=== PATIENT | female | born 1990 | race Caucasian/White ===

== ENCOUNTER 2019-07-17 22:07 | Emergency (ER) | payer SELFPAY ==
[2019-07-17 22:08] VITALS: BP 125/70; PULSE 77; RESP 16; TEMP 36.6; O2SAT 100; BMI 27.4
--- NOTE | 2019-07-17 22:55 | ED.DCSUM_ITS ---
- ER Visit Summary Date of Service: 07/17/19 Chief Complaint: [Dental pain] History of Present Illness: The patient is a 28 F [presents to the emergency department complaint of dental pain. Patient has had dental infections over the course of the last month. Patient's been on 2 rounds of clindamycin and dajuan hutchinson is on Zithromax. Patient saw dentist 5 days ago started the Zithromax. Patient states that she started feeling better but today started having more discomfort and pressure in her left upper face. She is concerned that the infection might spread to her bloodstream. Patient has not had any fevers or chills or sweats. Patient has a scheduled extraction to be performed in 5 days.] Physical Examination: [HEENT-PERRLA, EOMI. Cranial nerves II through XII grossly intact. TMs clear. Mucous membranes moist. No adenopathy. There is no facial erythema or cellulitis. No facial swelling noted. Patient does have tenderness to palpation over the left upper canine that is broken and worn down to the gumline. No discrete abscess noted. Patient has widespread dental decay. Cardiovascular-regular rate and rhythm without murmur or ectopy Lungs-clear to auscultation, chest wall stable without crepitus or subcu emphysema Abdomen-normoactive bowel sounds, soft, nontender, no rebound or rigidity, no peritoneal signs. Extremities-intact ?4, normal range of motion, normal pulses, atraumatic] Test Results: [None indicated] Emergency Department Course and Treatment: [Patient was started on clindamycin given first dose in the emergency department. Given a prescription for few [place] for pain.] Treatment Plan: [Clindamycin and [place] for pain. Patient keep her appointment with her dentist in 5 days.] Patient advised to return if worsening pain, fever, facial erythema or cellulitis, or conditions worsen anyway. Disposition: [Discharged home in stable condition] Impression: [Odontalgia] This note was generated with [employer] dictation software. It may contain incorrect words, spelling, and punctuation that were not noted in review of the chart prior to signing ED Disposition - Plan for ED Patient: Referrals: Care Physician,No Primary [Primary Care Provider] -
--- NOTE | 2019-07-17 22:57 | ED.DEP ---
ED Disposition - Plan for ED Patient: Instructions: Dental Pain Prescriptions: Clindamycin HCl [Cleocin] 300 mg PO Q6H #40 cap Prescription Printed Hydrocodone Bitart/Apap 5-325 [[place] 5MG-325MG] 1 tab PO Q4H PRN PRN 2 Days #10 tab PRN Reason: Pain Prescription Printed Referrals: Care Physician,No Primary [Primary Care Provider] - Additional Instructions: see your dentist
[2019-07-17] MEDS: Clindamycin HCl 150 MG Capsule 300 MG PO (23:12)
== END 2019-07-17 23:19 | disposition home or self-care (01) ==
LOC: ED 23:06
PROVIDERS: Emergency Provider Emergency Medicine
DX: K08.89 Other specified disorders of teeth and supporting structures (principal); K02.9 Dental caries, unspecified; Z72.0 Tobacco use
CPT/HCPCS: 99283

== ENCOUNTER 2020-01-31 18:38 | Emergency (ER) | payer SELFPAY ==
[2020-01-31 18:39] VITALS: BP 118/67; PULSE 87; RESP 16; TEMP 36.2; O2SAT 100; BMI 26.5
--- NOTE | 2020-01-31 18:45 | ED.VIS.GEN ---
History of Present Illness Chief Complaint: Back Informant: Patient Onset: Today Context: Gradual Onset Timing: Continuous Current Severity: Moderate Maximum Severity: Moderate Narrative: Patient is a 29-year-old female who is otherwise healthy the presents to the emergency department with right-sided flank pain. The patient states that she is had dysuria for the past 2 days. She went to urgent care yesterday and was diagnosed with UTI. She was started on Bactrim. She states today, she began to have more pain in her right flank. She denies any fevers or chills. She does admit to mild nausea. She denies any blood in her urine. She states she does have kidney stone, but it was 15 years ago. She has been compliant with her medications. She has no history of immunosuppression. Prior similar symptoms: Yes Recent Illness/Hospitalization: No Past Medical History - Allergies and Home Meds Allergies/Adverse Reactions: Allergies amoxicillin Allergy (Verified 01/31/20 18:39) Unknown Penicillins [PCN] Allergy (Verified 01/31/20 18:39) Unknown Primary Care Physician: Care Physician,No Primary [Primary Care Provider] - Prior records reviewed: Yes Past Medical History: None Surgical History: noncontributory Smoking Status: Current every day smoker Review of Systems General: Denies: Chills, Fever, Sweats Eyes: Denies: Visual changes - bilaterally, Diplopia ENT: Denies: Rhinorrhea, Sore throat Cardiovascular: Denies: Chest pain, Palpitations Respiratory: Denies: Dyspnea, Cough, Dyspnea on exertion Gastrointestinal: Reports: Nausea. Denies: Abdominal pain, Vomiting, Diarrhea, Melena, Hematochezia Genitourinary: Reports: Dysuria, Hematuria. Denies: Frequency Musculoskeletal: Reports: Back pain. Denies: Extremity Pain Skin: Denies: Rash, Wounds Neurological: Denies: Headache, Weakness, Numbness Physical Exam Vital Signs/Narrative: Vital Signs Temp Pulse Resp BP Pulse Ox 01/31/20 18:39 97.1 F L 87 16 118/67 100 Inital Vital Signs reviewed: Yes General: Well nourished, Well developed, No Acute Distress Head: Normocephalic, Atraumatic Eyes: Perrl, EOMI ENT: Moist mucous membranes, No rhinorrhea Neck: Supple, Nontender Cardiovascular: Regular rate, Regular rhythm, No murmurs Respiratory: No distress, CTA bilaterally, Chest nontender Abdomen: Soft, Nontender, Nondistended, Normal bowel sounds Back: Normal Inspection, CVA tenderness Extremities: Nontender, No edema Skin: Normal color, No rash Neurological: Alert, Oriented x3, Cranial nerves II-XII grossly intact, Normal Strength, Normal Sensation Psychological: Normal affect, Normal Mood Diagnostic/Tx/Re-eval Abnormal Lab Results 01/31/20 01/31/20 01/31/20 18:45 18:45 19:20 WBC 6.8 RBC 4.38 Hgb 13.8 Hct 41.3 MCV 94.3 MCH 31.5 MCHC 33.4 RDW Std Deviation 44.0 H RDW Coeff of Jasmin 12.8 Plt Count 313 MPV 10.1 Immature Gran % (Auto) 0.300 Neut % (Auto) 59.8 Lymph % (Auto) 33.2 [place] % (Auto) 5.6 Eos % (Auto) 0.7 Baso % (Auto) 0.4 Absolute Neuts (auto) 4.1 Absolute Lymphs (auto) 2.25 Nucleated RBC % 0 Sodium Potassium Chloride Carbon Dioxide Anion Gap BUN Creatinine Estim Creat Clear Calc Est GFR (MDRD) Af Amer Est GFR (MDRD) Non-Af BUN/Creatinine Ratio Glucose Calcium Total Bilirubin AST ALT Alkaline Phosphatase Total Protein Albumin Globulin Albumin/Globulin Ratio Urine Color Dorita Urine Clarity Clear Urine pH 6.0 Ur Specific [place] 1.015 Urine Protein 30 H Urine Glucose (UA) Normal Urine Ketones Negative Urine Occult Blood 50 H Urine Nitrite Positive H Urine Bilirubin 3 H Urine Urobilinogen 8 H Ur Leukocyte Esterase 25 H Urine RBC 5-10 SEEN Urine WBC 5-10 SEEN Ur Squamous Epith Cells 10-25 SEEN Ur Renal Epithelial Cell 0-5 SEEN Urine Bacteria 1+ Urine Mucus 0 SEEN Urine Test Negative 01/31/20 19:20 WBC RBC Hgb Hct MCV MCH MCHC RDW Std Deviation RDW Coeff of Jasmin Plt Count MPV Immature Gran % (Auto) Neut % (Auto) Lymph % (Auto) [place] % (Auto) Eos % (Auto) Baso % (Auto) Absolute Neuts (auto) Absolute Lymphs (auto) Nucleated RBC % Sodium 143 Potassium 3.8 Chloride 110 H Carbon Dioxide 27.0 Anion Gap 6 BUN 13 Creatinine 0.78 Estim Creat Clear Calc 84.17 Est GFR (MDRD) Af Amer 111 Est GFR (MDRD) Non-Af 92 BUN/Creatinine Ratio 16.6 Glucose 94 Calcium 9.0 Total Bilirubin 0.30 AST 9 L ALT 14 Alkaline Phosphatase 53 Total Protein 7.2 Albumin 3.5 Globulin 3.7 Albumin/Globulin Ratio 0.9 Urine Color Urine Clarity Urine pH Ur Specific [place] Urine Protein Urine Glucose (UA) Urine Ketones Urine Occult Blood Urine Nitrite Urine Bilirubin Urine Urobilinogen Ur Leukocyte Esterase Urine RBC Urine WBC Ur Squamous Epith Cells Ur Renal Epithelial Cell Urine Bacteria Urine Mucus Urine Test - Medical Decision Making The patient presents with right-sided flank pain. She was recently diagnosed with UTI. I do suspect she likely has pyelonephritis. It is hard to determine if this is actually treatment failure she is only had 2 doses of antibiotics. She is afebrile. Metabolic work-up was pursued and is relatively unremarkable. Her urine is still nitrite positive with 1+ bacteria. I will add a culture. Patient was given IV Rocephin. I will have her continue her Bactrim pending results of the culture. I will treat her with a short course of analgesics and antiemetics. She will be discharged home. Impression 1. Pyelonephritis ED Disposition - Plan for ED Patient: Instructions: ED Pyelonephritis Female Adult Prescriptions: Hydrocodone Bitart/Apap 5-325 [[place] 5MG-325MG] 1 tab PO Q6H PRN PRN 3 Days #10 tab PRN Reason: Pain Prescription Printed Ondansetron [Zofran Odt] 4 mg PO Q8H PRN PRN #10 tab PRN Reason: Nausea Prescription Printed Referrals: Care Physician,No Primary [Primary Care Provider] -
[2020-01-31 18:56] LABS: Mucous, Urine 0 SEEN /hpf (<or=2+)
[2020-01-31 18:58] LABS: Color, Urine Amber (Yellow); Glucose, Dipstick Normal (Normal); Ketone-Dipstick Negative (Negative); Leukocyte Esterase-Dipstick 25 /ul (Negative); Nitrite-Dipstick Positive (Negative); Occult Blood-Urine 50 /ul (Negative); Protein-Dipstick 30 mg/dl (Negative); Specific Gravity, Urine 1.015 (1.002-1.030); Urine Clarity Clear (Clear); Urine Urobilinogen 8 mg/dl (Normal)
[2020-01-31 18:59] LABS: Internal QC Validated? YES +Cl - CLEAR BKGD; Pregnancy, Urine Negative Negative
[2020-01-31 19:04] LABS: Urine Bilirubin Dipstick 3 mg/dL (Negative)
[2020-01-31 19:05] LABS: Squamous Epithelial Cells - UA 10-25 SEEN /hpf (5-10)
[2020-01-31 19:06] LABS: Bacteria 1+ /hpf (None Seen); Red Blood Cells-Urine 5-10 SEEN /hpf (0-5); Renal Epithelial Cells 0-5 SEEN /hpf (0-5); White Blood Cells 5-10 SEEN /hpf (0-5)
[2020-01-31] MEDS: Ketorolac 15 MG/ML Vial IV (19:14)
[2020-01-31] MEDS: Ondansetron 4 MG/2 ML Vial IV (19:14)
[2020-01-31] MEDS: 0.9% Normal Saline 1,000 ML 1000 ML IV (19:14)
[2020-01-31 19:34] LABS: Absolute Lymphocyte Count 2.25 X10^3/uL (0.83-4.51); Absolute Neutrophil Count 4.1 X10^3/uL (2.0-7.7); Basophil# 0.03 X10^3/uL; Basophil% 0.4 % (0-1); Eosinophil# 0.05 X10^3/uL; Eosinophils% 0.7 % (0-5); Hematocrit 41.3 % (37-47); Hemoglobin 13.8 g/dL (12.0-15.0); Lymphocyte # 2.25 X10^3/ul (4.0); Lymphocyte % 33.2 % (19-41); Mean Corp Hgb Conc 33.4 g/dL (32-36); Mean Corpuscular Hgb 31.5 pg (27.0-32.0); Mean Corpuscular Volume 94.3 fL (81-99); Mean Platelet Vol. 10.1 fl (6.2-12.0); Monocyte# 0.38 X10^3/uL; Monocyte% 5.6 % (0-10); NRBC Flagged by Analyzer 0 % (0-5); Neutrophil # 4.05 X10^3/uL (2.7-7.7); Neutrophil % 59.8 % (47-70); Platelet Count 313 K/mm3 (150-450); RBC Distribution Width CV 12.8 % (11.6-14.6); Red Blood Count 4.38 M/mm3 (4.2-5.4); White Blood Count 6.8 K/mm3 (4.4-11.0)
[2020-01-31 19:48] LABS: ALB/GLOB Ratio 0.9 RATIO (0.9-2.4); AST(SGOT) 9 U/L (15-37); Alanine Aminotransfer ALT/SGPT 14 U/L (13-56); Albumin, Serum 3.5 g/dL (3.2-5.0); Alkaline Phosphatase 53 U/L (45-117); Anion Gap 6 (5-15); BUN 13 mg/dL (7-18); BUN/Creat Ratio 16.6 RATIO (10-20); Chloride 110 mmol/L (98-107); Creatinine, Serum 0.78 mg/dL (0.55-1.02); EST Glomerular Filtration Rate 92 mL/min (>60); Est Glom Filt Rate - Afr Amer 111 mL/min (>60); Estimated Creatinine Clearance 84.17 ml/min; Globulin 3.7 g/dL (2.2-4.2); Glucose 94 mg/dL (74-106); Potassium 3.8 mmol/L (3.5-5.1); Protein, Total 7.2 g/dL (6.4-8.2); Sodium Level 143 mmol/L (136-145)
[2020-01-31] MEDS: Morphine 4 MG/ML Syringe IV (20:11)
[2020-01-31] MEDS: Ceftriaxone 1 GM/50 ML BAG IV (20:13)
[2020-01-31 21:05] VITALS: BP 109/56; PULSE 62; RESP 14; O2SAT 98
== END 2020-01-31 21:15 | disposition home or self-care (01) ==
LOC: ED 19:23
PROVIDERS: Emergency Provider Emergency Medicine
DX: N12 Tubulo-interstitial nephritis, not specified as acute or chronic (principal); Z87.442 Personal history of urinary calculi; F17.200 Nicotine dependence, unspecified, uncomplicated
CPT/HCPCS: 80053; 81001; 81025; 85025; 87086; 87088; 96365; 96374; 96375; 99285; J7030; A4216; J2405

== ENCOUNTER 2020-02-07 16:55 | Emergency (ER) | payer SELFPAY ==
[2020-02-07 16:57] VITALS: BP 110/76; PULSE 73; PULSE 79; RESP 18; TEMP 36.9; O2SAT 100; O2SAT 99; BMI 27.2
--- NOTE | 2020-02-07 17:11 | CT_ITS ---
STUDY: CT ABDOMEN AND PELVIS WITHOUT CONTRAST REASON FOR EXAM: Female, 29 years old. RIGHT FLANK PAIN, DYSURIA, PELVIC PRESSURE, RECENT UTI, HX [place] IN PAST RADIATION DOSAGE (If Supplied By Facility): CTDIvol = ( 6.40 ) mGy, DLP = ( 294.33 ) mGycm TECHNIQUE: Transaxial images were obtained from the dome of the diaphragm to the symphysis pubis without oral contrast, and without intravenous contrast. Sagittal and coronal images were reconstructed. Individualized dose optimization techniques were used for this CT. COMPARISON: None. FINDINGS: The visualized lung bases are unremarkable. The visualized portions of the heart are within normal limits. The lack of intravenous contrast limits evaluation of solid visceral organs. Normal liver. Normal gallbladder and extrahepatic biliary system. Normal spleen. Normal pancreas. Normal bilateral adrenal glands. Normal right kidney. Normal left kidney. Normal visualized stomach. Normal small intestine. There is a large amount of stool throughout the colon. The appendix is visualized and appears normal. Normal abdominal aorta. Normal inferior vena cava. Normal retroperitoneum. Normal urinary bladder. Normal abdominal wall. There are degenerative changes within the lower thoracic spine. CT/Abdomen/Pelvis without Cont IMPRESSION: Moderate amount of stool throughout the colon. Electronically Signed: Anna De La Garza MD at 18:14 EDT Tel , Service support ,
[2020-02-07] MEDS: Ondansetron 4 MG/2 ML Vial IV (17:27)
[2020-02-07] MEDS: 0.9% Normal Saline 1,000 ML 250 ML IV (17:27)
[2020-02-07] MEDS: Ketorolac 30 MG/ML Syringe 15 MG IV (17:28)
[2020-02-07 17:29] LABS: Bacteria 0 SEEN /hpf (None Seen); Mucous, Urine 0 SEEN /hpf (<or=2+); White Blood Cells 0 SEEN /hpf (0-5)
[2020-02-07 17:30] LABS: Color, Urine Yellow (Yellow); Glucose, Dipstick Normal (Normal); Ketone-Dipstick Negative (Negative); Leukocyte Esterase-Dipstick Negative /ul (Negative); Nitrite-Dipstick Negative (Negative); Occult Blood-Urine 25 /ul (Negative); Protein-Dipstick Negative (Negative); Urine Bilirubin Dipstick Negative (Negative); Urine Clarity Sl. Cloudy (Clear); Urine Urobilinogen Normal (Normal); Urine pH 6.5 (5.0 - 8.0)
[2020-02-07 17:48] LABS: Internal QC Validated? YES +Cl - CLEAR BKGD; Pregnancy, Serum, hCG Quali. NEGATIVE Negative
[2020-02-07 17:53] LABS: Red Blood Cells-Urine 0-5 SEEN /hpf (0-5); Squamous Epithelial Cells - UA 0-5 SEEN /hpf (5-10)
--- NOTE | 2020-02-07 18:24 | ED.VISSUMM ---
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 She reports that she has suprapubic pain that began today. Is a sharp pain instead of 10 at worst and 6 out of 10 currently. She reports that it is worsened by sitting and relieved by stretching out. She is not taken anything for pain. Patient reports that she went to urgent care 8 days ago and was placed on Bactrim for a urinary tract infection. She was seen here 6 days ago was given a dose of IV batted antibiotics and instructed to continue her Bactrim. She reports that despite this she still has dysuria and frequency. She denies any vaginal bleeding or discharge. Her last menstrual period was 12 days ago. She denies any possible chance of an STD exposure. Patient denies fever, chills, cough, chest pain, or shortness of breath. Physical Examination: Vitals: Stable. Afebrile. General: Well-nourished and well-developed. Head: Normocephalic atraumatic. Neck: Supple, no lymphadenopathy. No JVD. Nontender. Cardiovascular: Regular rate and rhythm. No murmurs. Respiratory: No respiratory distress. Clear to auscultation bilaterally. Abdominal: Soft, mild diffuse lower abdominal tenderness that is worst in the suprapubic region, nondistended, normal bowel sounds. No guarding, rebound, or peritoneal signs. Back: Nontender. Extremities: Nontender, no edema. Skin: Normal color, no rash. Neurologic: Alert and oriented ?3. Cranial nerves II through XII are intact. Normal strength and sensation. Psych: Normal affect. Test Results: UA shows occult blood. test is negative. Clinical Impression(s) from Imaging Studies Abdomen/Pelvis CT 02/07/20 17:11 IMPRESSION: Moderate amount of stool throughout the colon. Electronically Signed: Anna De La Garza MD at 18:14 EDT Tel , Service support , Emergency Department Course and Treatment: Patient was given Toradol and Zofran IV. She is resting comfortably. Treatment Plan: Patient will be discharged with magnesium citrate. Instructed to follow-up with Dr. July Palm in 1 to 2 days if she is not improving after having a bowel movement. She is also instructed to follow-up with Dr. Paulina Olson for gynecology. Return to the emergency department for any worsening symptoms. Disposition: To home in improved and stable condition. Impression: 1 1. Constipation. This note was generated with [employer] dictation software. It may contain incorrect words, spelling, and punctuation that were not noted in review of the chart prior to signing ED Disposition - Plan for ED Patient: Instructions: ED Constipation Prescriptions: Magnesium Citrate [Citrate Of Magnesia] 300 ml PO X1 #1 bottle Referrals: July Mei MD [STAFF PHYSICIAN] - 1-2 Days if not improving Paulina Olson DO [STAFF PHYSICIAN] - 3-5 Days
[2020-02-07 18:54] VITALS: BP 111/81; PULSE 81; RESP 18; O2SAT 97
== END 2020-02-07 18:56 | disposition home or self-care (01) ==
PROVIDERS: Emergency Provider Emergency Medicine
DX: K59.00 Constipation, unspecified (principal); Z87.440 Personal history of urinary (tract) infections; F17.200 Nicotine dependence, unspecified, uncomplicated
CPT/HCPCS: 74176; 81001; 84703; 87086; 87088; 96361; 96374; 96375; 99283; J7030; A4216; J2405